=== PATIENT | male | born 1935 | race Caucasian/White ===

== ENCOUNTER 2017-01-25 16:24 | Observation (INO) | payer MEDICARE, BC ==
--- NOTE | 2017-01-25 16:44 | EDM.PDOC ---
ED HPI GENERAL MEDICAL PROBLEM - General Chief Complaint: General Stated Complaint: FELL DOWNSTAIRS Time Seen by Provider: 01/25/17 16:36 Source of Information: Reports: Patient, Family History Limitations: Reports: Other (Dementia) - History of Present Illness INITIAL COMMENTS - FREE TEXT/NARRATIVE: Feliciano presents today to the ER via EMS after a a fall down a narrow stair well. He was found by his sitting at the bottom of the stairs awake. 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 ) Right Upper Leg Pain Score (Numeric/FACES): 6 - Related Data Allergies Allergy/AdvReac Type Severity Reaction Status Date / Time No Known Allergies Allergy Verified 01/25/17 21:01 Home Meds: Home Meds Ascorbate Calcium [Vitamin C] 1 tab PO ASDIRECTED 01/25/17 [History] Aspirin [Halfprin] 1 tab PO DAILY 01/25/17 [History] Citalopram [Citalopram HBr] 1 tab PO DAILY 01/25/17 [History] Donepezil HCl 1 tab PO DAILY 01/25/17 [History] Lisinopril 1 tab PO DAILY 01/25/17 [History] Loperamide [Imodium AD] 1 cap PO DAILY 01/25/17 [History] Memantine [Namenda] 1 tab PO BID 01/25/17 [History] Metoprolol Succinate 1 tab PO DAILY 01/25/17 [History] Simvastatin [Zocor] 1 tab PO BEDTIME 01/25/17 [History] ED ROS GENERAL - Review of Systems Review Of Systems: See Below Constitutional: Denies: Fever, Chills HEENT: Denies: Ear Discharge, Eye Pain, Hearing Loss, Nosebleed, Nose Pain, Throat Pain Respiratory: Denies: Shortness of Breath, Wheezing, Cough, Sputum Cardiovascular: Denies: Chest Pain, Lightheadedness, Palpitations, Syncope Endocrine: Reports: No Symptoms GI/Abdominal: Denies: Abdominal Pain, Nausea, Vomiting : Reports: No Symptoms Musculoskeletal: Reports: Other (Pain to right hip/femur. ) Skin: Reports: Other (Multiple abrasions to hands, left elbow, right lower leg, face and forehead. ) Neurological: Reports: Confusion. Denies: Dizziness, Headache, Numbness, Paresthesia, Tingling, Trouble Speaking, Weakness Psychiatric: Reports: Other (Dementia) Hematologic/Lymphatic: Reports: No Symptoms Immunologic: Reports: No Symptoms ED EXAM, GENERAL - Physical Exam Exam: See Below Free Text/Narrative:: Feliciano is a pleasant, confused 81 year old male who fell down a narrow staircase. The fall was not witnessed. He was found at the bottom of the stairs sitting and awake by his . EMS was activated. He complains of pain to his right hip/femur and at sites of multiple abrasions Exam Limited By: No Limitations General Appearance: Moderate Distress, Other (Alert to self only, cooperative. ) Eye Exam: Bilateral Eye: EOMI, Normal Inspection, PERRL Ears: Normal External Exam, Normal Canal, Hearing Grossly Normal, Normal TMs Ear Exam: Bilateral Ear: Auricle Normal, Canal Normal, TM normal Nose: Normal Inspection, Normal Mucosa, No Blood Throat/Mouth: Normal Inspection, Normal Lips, Normal Oropharynx, Normal Voice, No Airway Compromise Head: Atraumatic, Normocephalic Neck: Normal Inspection, Supple, Non-Tender, Full Range of Motion. No: Lymphadenopathy (R), Lymphadenopathy (L) Respiratory/Chest: No Respiratory Distress, Lungs Clear, Normal Breath Sounds, No Accessory Muscle Use, Chest Non-Tender Cardiovascular: Normal Peripheral Pulses, Regular Rate, Rhythm, No Edema, No Murmur Peripheral Pulses: 2+: Radial (L), Radial (R), Dorsalis Pedis (L), Dorsalis Pedis (R) GI/Abdominal: Normal Bowel Sounds, Soft, Non-Tender, No Distention, No Mass Back Exam: Normal Inspection, Full Range of Motion. No: CVA Tenderness (R), CVA Tenderness (L) Extremities: No Pedal Edema, Normal Capillary Refill, Other (Pain to right hip and femur with palpation, pelvis stable) Neurological: Other (Patient has history of dementia, answers yes and no questions. ) Psychiatric: Anxious Skin Exam: Warm, Dry, Other (several abrasions noted without lacerations to hands, left elbow and right lower leg. ) Lymphatic: No Adenopathy Course - Vital Signs Last Recorded V/S: Last Vital Signs Temp 37.0 C 01/25/17 20:21 Pulse 66 01/25/17 20:21 Resp 15 01/25/17 20:21 BP 134/66 01/25/17 21:10 Pulse Ox 98 01/25/17 20:21 - Orders/Labs/Meds Orders: Active Orders 24 hr Category Date Time Status Femur Min 2V Rt [CR] Stat Exams 01/25/17 16:41 Taken Head wo Cont [CT] Stat Exams 01/25/17 16:46 Taken Hip Min 2V or 3V w Pelvis Rt [CR] Stat Exams 01/25/17 16:41 Taken Medication Orders Acetaminophen (Tylenol Extra Strength) 1,000 mg PO TID [facility] Last Admin: 01/25/17 21:42 Dose: 1,000 mg Aspirin (Halfprin) 81 mg PO DAILY [facility] Citalopram Hydrobromide (Celexa) 20 mg PO BEDTIME [facility] Last Admin: 01/25/17 21:08 Dose: 20 mg Donepezil HCl (Aricept) 10 mg PO BEDTIME [facility] Last Admin: 01/25/17 21:09 Dose: 10 mg Sodium Chloride (Normal Saline) 1,000 mls @ 100 mls/hr IV ASDIRECTED [facility] Last Admin: 01/25/17 20:40 Dose: 100 mls/hr Ibuprofen (Motrin) 600 mg PO Q6H PRN PRN Reason: Pain/Fever Influenza Virus Vaccine (Fluzone High-Dose ) 180 mcg IM .ONCE ONE Stop: 01/26/17 10:01 Lisinopril (Prinivil) 20 mg PO BEDTIME [facility] Last Admin: 01/25/17 21:10 Dose: 20 mg Melatonin (Melatonin) 9 mg PO BEDTIME [facility] Last Admin: 01/25/17 21:13 Dose: 9 mg Admin: 01/25/17 21:08 Dose: Memantine (Namenda) 10 mg PO BID [facility] Last Admin: 01/25/17 21:10 Dose: 10 mg Metoprolol Succinate (Toprol Xl) 25 mg PO DAILY [facility] Morphine Sulfate (Morphine) 2 - 4 mg IVPUSH Q2H PRN PRN Reason: Pain (severe 7-10) Ondansetron HCl (Zofran Odt) 4 mg PO Q6H PRN PRN Reason: Nausea able to take PO Oxycodone HCl (Oxycodone) 5 mg PO Q4H PRN PRN Reason: Pain (moderate 4-6) Last Admin: 01/25/17 20:38 Dose: 5 mg Labs: Laboratory Tests 01/25/17 Range/Units 16:42 PT 11.2 (9.5-12.0) sec INR 1.04 (0.80-1.20) APTT 23.8 L (27.0-36.0) sec Meds: Medications Generic Name Dose Route Start Last Admin Trade Name Jhoanq PRN Reason Stop Dose Admin Acetaminophen 1,000 mg 01/25/17 21:00 01/25/17 21:42 Tylenol Extra Strength PO 1,000 mg TID ALIN Administration Aspirin 81 mg 01/26/17 09:00 Halfprin PO DAILY ALIN Citalopram Hydrobromide 20 mg 01/25/17 21:00 01/25/17 21:08 Celexa PO 20 mg BEDTIME ALIN Administration Donepezil HCl 10 mg 01/25/17 21:00 01/25/17 21:09 Aricept PO 10 mg BEDTIME ALIN Administration Sodium Chloride 1,000 mls @ 100 mls/hr 01/25/17 19:56 01/25/17 20:40 Normal Saline IV 100 mls/hr ASDIRECTED ALIN Administration Ibuprofen 600 mg 01/25/17 19:56 Motrin PO Q6H PRN Pain/Fever Influenza Virus Vaccine 180 mcg 01/26/17 10:00 Fluzone High-Dose 2017-18 IM 01/26/17 10:01 .ONCE ONE Lisinopril 20 mg 01/25/17 21:00 01/25/17 21:10 Prinivil PO 20 mg BEDTIME ALIN Administration Melatonin 9 mg 01/25/17 19:56 01/25/17 21:13 Melatonin PO 9 mg BEDTIME ALIN Administration Memantine 10 mg 01/25/17 21:00 01/25/17 21:10 Namenda PO 10 mg BID ALIN Administration Metoprolol Succinate 25 mg 01/26/17 09:00 Toprol Xl PO DAILY ALIN Morphine Sulfate 2 - 4 mg 01/25/17 19:56 Morphine IVPUSH Q2H PRN Pain (severe 7-10) Ondansetron HCl 4 mg 01/25/17 19:56 Zofran Odt PO Q6H PRN Nausea able to take PO Oxycodone HCl 5 mg 01/25/17 19:56 01/25/17 20:38 Oxycodone PO 5 mg Q4H PRN Administration Pain (moderate 4-6) Discontinued Medications Generic Name Dose Route Start Last Admin Trade Name [place] PRN Reason Stop Dose Admin Hydromorphone HCl 0.5 mg 01/25/17 18:15 01/25/17 18:36 Dilaudid IVPUSH 01/25/17 18:16 0.5 mg ONETIME ONE Administration Influenza Virus Vaccine 1 each 01/26/17 10:00 Pharmacy To Dose - Influenza Vaccine IM 01/26/17 10:01 ONETIME ONE Ketorolac Tromethamine 30 mg 01/25/17 19:08 01/25/17 19:11 Toradol IVPUSH 01/25/17 19:09 30 mg ONETIME ONE Administration - Radiology Interpretation Free Text/Narrative:: Head CT negative - Re-Assessments/Exams Free Text/Narrative Re-Assessment/Exam: 01/25/17 17:31 Patient x-rays reviewed with him and his . Images wet read, No acute fracture or finding of right hip and right femur. Radiologist read pending. Patient denies pain at this time. Pending head CT results. 01/25/17 19:[address] negative. Patient continues to have pain to lower legs, muscles. Toradol ordered. Discussed case with Dr. Tanvi Bear. Patient will be admitted for pain control. Departure - Departure Time of Disposition: 20:00 Disposition: Admitted As Inpatient 67 Clinical Impression: Fall (on) (from) other stairs and steps, initial encounter, Pain - Discharge Information - My Orders Last 24 Hours: My Active Orders 01/25/17 16:41 Femur Min 2V Rt [CR] Stat Hip Min 2V or 3V w Pelvis Rt [CR] Stat 01/25/17 16:46 Head wo Cont [CT] Stat - Assessment/Plan Last 24 Hours: My Active Orders 01/25/17 16:41 Femur Min 2V Rt [CR] Stat Hip Min 2V or 3V w Pelvis Rt [CR] Stat 01/25/17 16:46 Head wo Cont [CT] Stat Assessment:: Continued pain status post fall down narrow stairwell Dementia Case discussed with Dr. Bear, patient will be admitted for pain management.
[2017-01-25] MEDS ORDERED: HYDROmorphone 0.5 MG/0.5 ML Syringe IVPUSH ONE (18:15)
[2017-01-25] MEDS ORDERED: Ketorolac 30 MG/ML SDV IVPUSH ONE (19:08)
--- NOTE | 2017-01-25 19:45 | PCM.HP ---
H&P History of Present Illness - General Date of Service: 01/25/17 Admit Problem/Dx: Admission Diagnosis/Problem Admission Diagnosis/Problem Fall Source of Information: Family, Provider. No: Patient History Limitations: Reports: Altered Mental Status (dementia) - History of Present Illness Initial Comments - Free Text/Narative: Tung presented to the emergency room after his found him sitting the bottom of the stairs. There was evidence for trauma. Patient has dementia and has no recall of the event. History is gathered from his and emergency room personnel. The suspected fall down the stairs was not witnessed. He has multiple abrasions on his face and arms and legs. He is complaining of severe right thigh pain that he describes as sharp. He did not take anything for the pain prior to arrival. Moving and pressure make the pain worse. He is not sure where he is at right now. He's not sure what day it is. He keeps saying "I don' t know what to do". Extensive workup in the emergency room including Saturday x-ray imaging studies has been unremarkable. There is no evidence for fracture or dislocation. Pain control and management are complicated by his dementia. He will be admitted for pain control and observation. Right Upper Leg Pain Score (Numeric/FACES): 6 - Related Data Allergies/Adverse Reactions: Allergies Allergy/AdvReac Type Severity Reaction Status Date / Time No Known Allergies Allergy Verified 01/25/17 16:42 Home Medications: Home Meds Ascorbate Calcium [Vitamin C] 1 tab PO ASDIRECTED 01/25/17 [History] Aspirin [Halfprin] 1 tab PO DAILY 01/25/17 [History] Citalopram [Citalopram HBr] 1 tab PO DAILY 01/25/17 [History] Donepezil HCl 1 tab PO DAILY 01/25/17 [History] Lisinopril 1 tab PO DAILY 01/25/17 [History] Loperamide [Imodium AD] 1 cap PO ASDIRECTED PRN 01/25/17 [History] Memantine [Namenda] 1 tab PO BID 01/25/17 [History] Metoprolol Succinate 1 tab PO DAILY 01/25/17 [History] Simvastatin [Zocor] 1 tab PO BEDTIME 01/25/17 [History] Past Medical History HEENT History: Reports: Cataract, Impaired Vision Cardiovascular History: Reports: CAD, High Cholesterol, Hypertension, Stents Psychiatric History: Reports: Dementia, Depression, Other (See Below) Other Psychiatric History: alzheimer's - Past Surgical History HEENT Surgical History: Reports: Cataract Surgery Cardiovascular Surgical History: Reports: Coronary Artery Stent GI Surgical History: Reports: Colonoscopy Musculoskeletal Surgical History: Reports: Knee Replacement, Other (See Below) Other Musculoskeletal Surgeries/Procedures:: bilateral wrists fused Social & Family History - Family History Family Medical History: Unobtainable (Dementia) - Tobacco Use Smoking Status *Q: Unknown Ever Smoked - Caffeine Use Caffeine Use: Reports: None - Alcohol Use Alcohol Use History: No - Recreational Drug Use Recreational Drug Use: No H&P Review of Systems - Review of Systems: Review Of Systems: Unable To Obtain (Secondary to dementia) Exam - Exam Exam: See Below - Vital Signs Vital Signs: Last Vital Signs Temp 37.3 C 01/25/17 19:14 Pulse 67 01/25/17 19:14 Resp 17 01/25/17 19:14 BP 178/102 H 01/25/17 19:14 Pulse Ox 100 01/25/17 19:14 Weight: 81.647 kg - Exam Quality Assessment: No: Supplemental Oxygen General: Alert, Cooperative, Mild Distress. No: Oriented HEENT: Conjunctiva Clear, Pupils Equal. No: Mucosa Moist & [place] (dry), Scleral Icterus Neck: Supple, Trachea Midline. No: Full Range of Motion (Tender over both trapezius muscles and cervical paraspinal muscles), Lymphadenopathy Lungs: Clear to Auscultation, Normal Respiratory Effort Cardiovascular: Regular Rate, Regular Rhythm GI/Abdominal Exam: Normal Bowel Sounds, Soft, Non-Tender, No Distention Back Exam: Normal Inspection. No: Muscle Spasm Extremities: No Pedal Edema, Joint Swelling (Mild right knee swelling), Other ( Tender to palpation over the anterior and lateral right thigh. No mass, deformity or palpable abnormality). No: Increased Warmth Peripheral Pulses: 2+: Dorsalis Pedis (L), Dorsalis Pedis (R) Skin: Warm, Dry, Ecchymosis (Above and lateral to the right eye), Other ( Multiple abrasions including forehead, both arms and hands and right thigh as well as both lower legs) Neuro Extensive - Mental Status: Alert, Disorientation to Place, Disorientation to Time, Memory Loss-Remote Events, Memory Loss-Recent Events, Slow Response to Commands. No: Oriented x3 Neuro Extensive - Motor, Sensory, Reflexes: CN II-XII Intact. No: Dysarthria, Abnormal Motor Psychiatric: Alert, Anxious - Patient Data Lab Results Last 24 hrs: Laboratory Results - last 24 hr 01/25/17 Range/Units 16:42 PT 11.2 (9.5-12.0) sec INR 1.04 (0.80-1.20) APTT 23.8 L (27.0-36.0) sec Imaging Impressions Last 24 hrs: Head CT - images personally reviewed - there is no evidence for intercranial hemorrhage, fracture of the skull or other intracranial abnormality X-ray of right hip and femur - images personally reviewed - there is no evidence for fracture of the hip or femur on the right side *Q Meaningful Use (ADM) - VTE *Q VTE Criteria *Q: VTE Pharmacological Contraindications *Q: Risk of Bleeding - VTE Risk Assess *Q Each Risk Factor Represents 1 Point: None Total Score 1 Point Risk Factors: 0 Each Risk Factor Represents 2 Points: None Total Score 2 Point Risk Factors: 0 Each Risk Factor Represents 3 Points: Age 75 Years or Greater Total Score 3 Point Risk Factors: 3 Each Risk Factor Represents 5 Points: Multiple Trauma, Less than 1 Month Total Score 5 Point Risk Factors: 5 Venous Thromboembolism Risk Factor Score *Q: 8 - Stroke *Q Stroke Criteria *Q: - AMI *Q AMI Criteria *Q: - Problem List (1) Fall (on) (from) other stairs and steps, initial encounter SNOMED Code(s): 481462841 ICD Code: W10.8XXA - FALL (ON) (FROM) OTHER STAIRS AND STEPS, INITIAL ENCOUNTER Status: Acute Current Visit: Yes (2) Right thigh pain SNOMED Code(s): 28102785 ICD Code: M79.651 - PAIN IN RIGHT THIGH Status: Acute Current Visit: Yes (3) Dementia SNOMED Code(s): 28913299 ICD Code: F03.90 - UNSPECIFIED DEMENTIA WITHOUT BEHAVIORAL DISTURBANCE Status: Chronic Current Visit: Yes Qualifiers: Dementia type: Alzheimer's disease Alzheimer's disease onset: late-onset Dementia behavioral disturbance: without behavioral disturbance Qualified Code (s): G30.1 - Alzheimer's disease with late onset; F02.80 - Dementia in other diseases classified elsewhere without behavioral disturbance; F02.80 - Dementia in other diseases classified elsewhere without behavioral disturbance; F02.80 - Dementia in other diseases classified elsewhere without behavioral disturbance (4) Coronary artery disease SNOMED Code(s): 17865125 ICD Code: I25.10 - ATHSCL HEART DISEASE OF [place] CORONARY ARTERY W/O ANG PCTRS Status: Chronic Current Visit: Yes Qualifiers: Coronary Disease-Associated Artery/Lesion type: [place] artery [place] vs. transplanted heart: [place] heart Associated angina: without angina Qualified Code(s): I25.10 - Atherosclerotic heart disease of [place] coronary artery without angina pectoris Problem List Initiated/Reviewed/Updated: Yes Orders Last 24hrs: Active Orders 24 hr Category Date Time Status Patient Status Manage Transfer [TRANSFER] Routine ADT 01/25/17 19:25 Active Femur Min 2V Rt [CR] Stat Exams 01/25/17 16:41 Taken Head wo Cont [CT] Stat Exams 01/25/17 16:46 Taken Hip Min 2V or 3V w Pelvis Rt [CR] Stat Exams 01/25/17 16:41 Taken Resuscitation Status Routine Resus Stat 01/25/17 19:26 Ordered Assessment/Plan Comment:: ASSESSMENT AND PLAN - Fall with polytrauma - no evidence for fracture on imaging and no evidence for intracranial bleed on CT. Significant pain, especially involving the right thigh. multiple abrasions but no active bleeding. With his dementia he will be difficult to manage until his pain control has improved. I think he would be best served with a night of inpatient pain control and observation for discharge to home. -Scheduled acetaminophen -As needed ibuprofen -As needed oxycodone -ice packs Alzheimer's dementia - significant limitations at baseline. No behavior disturbance at this time. -Continue home medications -Melatonin at bedtime -Room close to the nurses station Coronary artery disease - asymptomatic at this time. -Continue medical management Maintenance issues - - DVT prophylaxis - mechanical - GI prophylaxis - not indicated - Nutrition - regular diet - Lamar catheter - not indicated CODE STATUS - full code Admission justification - patient will be referred observation status for pain control and additional monitoring Disposition - anticipate discharge to home tomorrow Cuate Bear M.D.
[2017-01-25] MEDS ORDERED: Morphine 2 MG/ML Syringe IVPUSH PRN (19:56)
[2017-01-25] MEDS ORDERED: Ibuprofen 600 MG Tab PO PRN (19:56)
[2017-01-25] MEDS ORDERED: oxyCODONE 5 MG Tab PO PRN (19:56)
[2017-01-25] MEDS ORDERED: Ondansetron 4 MG Tab.DIS PO PRN (19:56)
[2017-01-25] MEDS: Sodium Chloride 0.9% 1,000 ML IV SCH (20:40)
[2017-01-25] MEDS ORDERED: CITALOPRAM 20 MG PO SCH (21:00)
[2017-01-25] MEDS ORDERED: DONEPEZIL 10 MG PO SCH (21:00)
[2017-01-25] MEDS ORDERED: Lisinopril 20 MG Tab (PTOM) PO SCH (21:00)
[2017-01-25] MEDS: Melatonin 3 MG Tab PO SCH ×2 (21:08→21:13)
[2017-01-25] MEDS: MEMANTINE 10 MG PO SCH (21:10)
[2017-01-25] MEDS: Acetaminophen 500 MG Tab PO SCH (21:42)
[2017-01-26] MEDS: Sodium Chloride 0.9% 1,000 ML IV SCH (06:30)
[2017-01-26] MEDS: Acetaminophen 500 MG Tab PO SCH ×2 (08:38→13:28)
[2017-01-26] MEDS ORDERED: Aspirin 81 MG Tab.EC (PTOM) PO SCH (09:00)
[2017-01-26] MEDS ORDERED: Metoprolol Succinate 25 MG (PTOM) PO SCH (09:00)
[2017-01-26] MEDS: MEMANTINE 10 MG PO SCH (09:03)
[2017-01-26] MEDS ORDERED: FLU Vacc TS 2017-18 (65yr UP)/PF 180 MCG/0.5 ML Syringe IM ONE (10:00)
--- NOTE | 2017-01-26 14:57 | PCM.DCSUM1 ---
Discharge Summary - Hospital Course Brief History: 81-year-old male with history of dementia and coronary artery disease who presented with multiple injuries after a fall down the stairs. He was admitted for pain control and observation. - Discharge Data Discharge Date: 01/26/17 Discharge Disposition: Home, Self-Care 01 Condition: Fair - Discharge Diagnosis/Problem(s) (1) Fall (on) (from) other stairs and steps, initial encounter SNOMED Code(s): 022191026 ICD Code: W10.8XXA - FALL (ON) (FROM) OTHER STAIRS AND STEPS, INITIAL ENCOUNTER Status: Acute Current Visit: Yes (2) Contusion of right knee SNOMED Code(s): 90843450 ICD Code: S80.01XA - CONTUSION OF RIGHT KNEE, INITIAL ENCOUNTER Status: Acute Current Visit: Yes Qualifiers: Encounter type: initial encounter Qualified Code(s): S80.01XA - Contusion of right knee, initial encounter (3) Right thigh pain SNOMED Code(s): 57930509 ICD Code: M79.651 - PAIN IN RIGHT THIGH Status: Acute Current Visit: Yes (4) Dementia SNOMED Code(s): 69495613 ICD Code: F03.90 - UNSPECIFIED DEMENTIA WITHOUT BEHAVIORAL DISTURBANCE Status: Chronic Current Visit: Yes Qualifiers: Dementia type: Alzheimer's disease Alzheimer's disease onset: late-onset Dementia behavioral disturbance: without behavioral disturbance Qualified Code (s): G30.1 - Alzheimer's disease with late onset; F02.80 - Dementia in other diseases classified elsewhere without behavioral disturbance; F02.80 - Dementia in other diseases classified elsewhere without behavioral disturbance; F02.80 - Dementia in other diseases classified elsewhere without behavioral disturbance (5) Coronary artery disease SNOMED Code(s): 35244729 ICD Code: I25.10 - ATHSCL HEART DISEASE OF [place] CORONARY ARTERY W/O ANG PCTRS Status: Chronic Current Visit: Yes Qualifiers: Coronary Disease-Associated Artery/Lesion type: [place] artery [place] vs. transplanted heart: [place] heart Associated angina: without angina Qualified Code(s): I25.10 - Atherosclerotic heart disease of [place] coronary artery without angina pectoris - Patient Summary/Data Hospital Course: Tung presented to the emergency room yesterday after being found at the bottom of the stairs, presumably after falling down the stairs. He had no recollection for the event. Workup in the emergency room revealed multiple versus as well as multiple abrasions but no evidence for fracture. He was admitted to the hospital for pain control given severe thigh pain at the time of evaluation. There were no acute events overnight and his pain has been well-controlled using scheduled acetaminophen and occasional oxycodone. His mental status is much better the day after admission though he does remain confused which is his baseline with his dementia. He has been improving as far as his ability to ambulate throughout the course of the day. He was able to ambulate without the use of a walker and minimal pain. He does have some ongoing right knee pain and mild swelling but no other significant pains. His abrasions all seem to be small and relatively minor at this time. There is no active bleeding. His is comfortable with the improvement that he has made overnight and feels comfortable taking him home at this time. We will continue the as needed oxycodone for breakthrough pain in addition to the scheduled acetaminophen. He will follow-up if things do not continue to get better or if they get worse. - Patient Instructions Diet: Regular Diet as Tolerated Activity: As Tolerated Driving: Do Not Drive Showering/Bathing: May Shower Notify Provider of: Fever, Increased Pain, Nausea and/or Vomiting Other/Special Instructions: 1. You were in the hospital for observation after multiple injuries sustained after falling down the stairs. Your pain has improved significantly during the hospital stay. You do have a contusion with swelling involving the right knee. I would recommend that she will ice ice on the knee for 20 minutes at least 4 times a day. You can use acetaminophen for mild pain and I would recommend 1000 mg 3 times a day or 650 mg 4 times a day for the next week or more. You can use oxycodone every 6 hours as needed for more intense pain or to help him sleep at night. 2. Please continue your other medications as previously prescribed. 3. Please seek medical attention if you develop fever greater than 101, have worsening of your pain rather than improvement or you develop sudden onset of shortness of breath or difficulty breathing. - Discharge Plan Prescriptions/Med Rec: oxyCODONE 5 mg PO Q6H PRN #10 tablet PRN Reason: Pain Home Medications: Home Meds Ascorbate Calcium [Vitamin C] 1 tab PO ASDIRECTED 01/25/17 [History] Aspirin [Halfprin] 1 tab PO DAILY 01/25/17 [History] Citalopram [Citalopram HBr] 1 tab PO DAILY 01/25/17 [History] Donepezil HCl 1 tab PO DAILY 01/25/17 [History] Lisinopril 1 tab PO DAILY 01/25/17 [History] Loperamide [Imodium AD] 1 cap PO DAILY 01/25/17 [History] Memantine [Namenda] 1 tab PO BID 01/25/17 [History] Metoprolol Succinate 1 tab PO DAILY 01/25/17 [History] Simvastatin [Zocor] 1 tab PO BEDTIME 01/25/17 [History] oxyCODONE 5 mg PO Q6H PRN #10 tablet 01/26/17 [Rx] Patient Handouts: RICE for Routine Care of Injuries, [id number], Oxycodone tablets or capsules Referrals: PCP,None [Primary Care Provider] - (follow-up if your symptoms do not continue to get better or they get worse) - Discharge Summary/Plan Comment DC Time >30 min.: No (25) - Patient Data Vitals - Most Recent: Last Vital Signs Temp 35.4 C 01/26/17 14:36 Pulse 52 L 01/26/17 14:36 Resp 18 01/26/17 14:36 BP 124/68 01/26/17 14:36 Pulse Ox 98 01/26/17 14:36 Weight - Most Recent: 80.2 kg I&O - Last 24 hours: Intake & Output 01/25/17 01/26/17 01/26/17 22:59 06:59 14:59 Intake Total 887 150 Balance 887 150 Lab Results - Last 24 hrs: Laboratory Results - last 24 hr 01/26/17 01/26/17 Range/Units 05:11 05:11 WBC 11.8 H (4.5-11.0) K/uL RBC 4.06 L (4.30-5.90) M/uL Hgb 12.1 (12.0-15.0) g/dL Hct 37.3 L (40.0-54.0) % MCV 92 (80-98) fL MCH 30 (27-31) pg MCHC 32 (32-36) % Plt Count 136 L (150-400) K/uL Sodium 138 L (140-148) mmol/L Potassium 4.6 (3.6-5.2) mmol/L Chloride 106 (100-108) mmol/L Carbon Dioxide 24 (21-32) mmol/L Anion Gap 12.6 (5.0-14.0) mmol/L BUN 24 H (7-18) mg/dL Creatinine 1.3 (0.8-1.3) mg/dL Est Cr Clr Drug Dosing 43.85 mL/min Estimated GFR (MDRD) 53 L (>60) Glucose 134 H (74-106) mg/dL Calcium 8.0 L (8.5-10.1) mg/dL Med Orders - Current: Current Medications Acetaminophen (Tylenol Extra Strength) 1,000 mg PO TID [facility] Last Admin: 01/26/17 13:28 Dose: 1,000 mg Aspirin (Halfprin) 81 mg PO DAILY [facility] Last Admin: 01/26/17 09:04 Dose: 81 mg Citalopram Hydrobromide (Celexa) 20 mg PO BEDTIME [facility] Last Admin: 01/25/17 21:08 Dose: 20 mg Donepezil HCl (Aricept) 10 mg PO BEDTIME [facility] Last Admin: 01/25/17 21:09 Dose: 10 mg Sodium Chloride (Normal Saline) 1,000 mls @ 100 mls/hr IV ASDIRECTED [facility] Last Admin: 01/26/17 06:30 Dose: 100 mls/hr Ibuprofen (Motrin) 600 mg PO Q6H PRN PRN Reason: Pain/Fever Lisinopril (Prinivil) 20 mg PO BEDTIME [facility] Last Admin: 01/25/17 21:10 Dose: 20 mg Melatonin (Melatonin) 9 mg PO BEDTIME [facility] Last Admin: 01/25/17 21:13 Dose: 9 mg Memantine (Namenda) 10 mg PO BID [facility] Last Admin: 01/26/17 09:03 Dose: 10 mg Metoprolol Succinate (Toprol Xl) 25 mg PO DAILY [facility] Last Admin: 01/26/17 09:05 Dose: 25 mg Morphine Sulfate (Morphine) 2 - 4 mg IVPUSH Q2H PRN PRN Reason: Pain (severe 7-10) Ondansetron HCl (Zofran Odt) 4 mg PO Q6H PRN PRN Reason: Nausea able to take PO Oxycodone HCl (Oxycodone) 5 mg PO Q4H PRN PRN Reason: Pain (moderate 4-6) Last Admin: 01/25/17 20:38 Dose: 5 mg Discontinued Medications Hydromorphone HCl (Dilaudid) 0.5 mg IVPUSH ONETIME ONE Stop: 01/25/17 18:16 Last Admin: 01/25/17 18:36 Dose: 0.5 mg Influenza Virus Vaccine (Pharmacy To Dose - Influenza Vaccine) 1 each IM ONETIME ONE Stop: 01/26/17 10:01 Influenza Virus Vaccine (Fluzone High-Dose ) 180 mcg IM .ONCE ONE Stop: 01/26/17 10:01 Last Admin: 01/26/17 09:15 Dose: 180 mcg Ketorolac Tromethamine (Toradol) 30 mg IVPUSH ONETIME ONE Stop: 01/25/17 19:09 Last Admin: 01/25/17 19:11 Dose: 30 mg - Exam Quality Assessment: Denies: Supplemental Oxygen General: Reports: Alert, Cooperative, No Acute Distress Neck: Reports: Supple Lungs: Reports: Normal Respiratory Effort Extremities: Joint Swelling (Mild swelling of the right knee) Skin: Reports: Warm, Dry, Other (Multiple abrasions including the right side of his face, both forearms and hands as well as his right leg on the lateral thigh) Psy/Mental Status: Reports: Alert, Normal Affect *Q Meaningful Use (DIS) - VTE *Q VTE Criteria *Q: VTE Pharmacological Contraindications *Q: Risk of Bleeding - Stroke *Q Stroke Criteria *Q: - AMI *Q AMI Criteria *Q:
--- NOTE | 2017-01-28 09:00 | CR ---
Hip Min 2V or 3V w Pelvis Rt, Femur Min 2V Rt INDICATION: fall, pain to right femur/hip FINDINGS: Moderate degenerative narrowing both hips. Right total knee arthroplasty. Small knee effusi on or synovitis. Exam otherwise negative.
== END 2017-01-26 16:14 | disposition home or self-care (01) ==
LOC: JP.ED 16:24 → JP.MS 19:25
PROVIDERS: ADMIT Internal Medicine; ATTEND Internal Medicine
DX: S80.01XA Contusion of right knee, initial encounter (principal); M79.651 Pain in right thigh; G30.1 Alzheimer's disease with late onset; F02.80 Dementia in other diseases classified elsewhere, unspecified severity, without behavioral disturbance, psychotic disturbance, mood disturbance, and anxiety; I25.10 Atherosclerotic heart disease of native coronary artery without angina pectoris; I10 Essential (primary) hypertension; E78.00 Pure hypercholesterolemia, unspecified; F32.9 Major depressive disorder, single episode, unspecified; Z79.82 Long term (current) use of aspirin; Z79.899 Other long term (current) drug therapy; Z95.5 Presence of coronary angioplasty implant and graft; Z98.890 Other specified postprocedural states; Z96.659 Presence of unspecified artificial knee joint; W10.8XXA Fall (on) (from) other stairs and steps, initial encounter; Z23 Encounter for immunization
CPT/HCPCS: 36415; 70450; 73502; 73552; 80048; 85027; 85610; 85730; 96361; 96374; 96375; 99217; 99219; 99284; 99285; A9270; G0008; G0378; J1170; J1885; J7040; 90662